=== PATIENT | male | born 1980 ===

== ENCOUNTER 2017-09-12 08:49 | Day surgery (SDC) | payer OTHER ==
[2017-09-12 09:18] VITALS: BMI 27.1
[2017-09-12] MEDS ORDERED: Lactated Ringer's 1,000 ML IV ONE ×2 (09:28→11:50)
[2017-09-12] MEDS ORDERED: Propofol 10 mg/ml Inj (20 ML) ONE (10:54)
[2017-09-12] MEDS ORDERED: Midazolam 2 MG/2 ML VIAL ONE (10:54)
[2017-09-12] MEDS ORDERED: Lidocaine Hydrochloride 0 ML INJ ONE (11:19)
[2017-09-12] MEDS ORDERED: ceFAZolin IV 1 gm in Dextrose 1 GM/50 ML BAG IVPB ONE (11:20)
[2017-09-12] MEDS ORDERED: Lidocaine 1% Inj (20ml) ONE (11:20)
[2017-09-12] MEDS ORDERED: Lidocaine 2% w Epi 1:100,000 Inj IJ ONE (11:32)
[2017-09-12] MEDS ORDERED: Lidocaine 1% Inj (20ml) IJ ONE (11:40)
[2017-09-12] MEDS ORDERED: Lactated Ringer's 1,000 ML IV SCH (12:30)
[2017-09-12] MEDS: HYDROmorphone 0.5 mg/0.5 ml ISec IVP PRN ×2 (13:00→13:02)
--- NOTE | 2017-09-12 13:05 | PCM.SURG1 ---
Surgeon's Initial Post Op Note - Surgeon's Notes Surgeon: hema Clutch Mechanic: none Type of Anesthesia: IV Sedation Pre-Operative Diagnosis: Right wrist ganglion cyst Operative Findings: see dictation Post-Operative Diagnosis: same Operation Performed: volar ganglion cyst excision Specimen/Specimens Removed: cyst Estimated Blood Loss: EBL {In ML}: 0 Date of Surgery/Procedure: 09/12/17 Time of Surgery/Procedure: 11:00
--- NOTE | 2017-09-12 13:06 | CP.PCM.DIS ---
Provider - Provider Attending physician: Christian Kimball MD Primary care physician: Christian Kimball MD Time Spent in preparation of Discharge (in minutes): 5 Discharge Plan - Follow Up Plan Condition: GOOD Disposition: HOME/ ROUTINE Referrals: Christian Kimball MD [Primary Care Provider] -
[2017-09-12 18:17] VITALS: BP 110/70; PULSE 60; RESP 18; TEMP 98; O2SAT 98
--- NOTE | 2017-09-18 16:11 | OP ---
PROCEDURE DATE: 09/12/2017 SURGEON: Christian Kimball MD MINK SLICER: None. PREOPERATIVE DIAGNOSIS: Right volar ganglion cyst. POSTOPERATIVE DIAGNOSIS: Right volar ganglion cyst. PROCEDURES: 1. Excision of right volar ganglion cyst, 62197. 2. Right wrist arthrotomy and synovectomy, 35281. TYPE OF ANESTHESIA: Regional and supplemental sedation. ESTIMATED BLOOD LOSS: None. COMPLICATIONS: None. DISPOSITION: Stable to recovery room. OPERATIVE FINDINGS: A volar ganglion cyst emanating from the radiocarpal joint. INDICATION: A 36-year-old male, who sustained an injury to his right wrist and developed traumatic volar ganglion cyst. The patient has failed conservative therapy, which included physical therapy, antiinflammatory medications, and splinting. He continued to have pain and limitation with the use of the hand. The above surgery was indicated. Risks and benefits of the surgery were explained, which included but not limited to bleeding; infection; tendon, nerve, or vessel injury; instability; chronic pain; potential need for additional surgery in the future. The patient understood the above risks and elected to proceed. DESCRIPTION OF PROCEDURE: The patient was taken to the operating room and placed supine on the operating room table. After adequate regional anesthesia and prophylactic antibiotics were given, well-padded non-sterile tourniquet was placed on the patient's right upper extremity. The entire extremity was then prepped and draped in a standard surgical fashion. Proposed incision was marked out with a sterile marking pen. This was a longitudinal incision over the volar and radial aspect of the wrist. The incision began at the level of the soft tissue mass and extending distally in to the level of the wrist flexion crease. An Esmarch bandage was used to exsanguinate the limb and the tourniquet was inflated to 250 mmHg. The Esmarch bandage was then removed. An incision was made in the skin only. All superficial veins were cauterized. Immediately, attention was turned down to the volar mass. Therefore, the ganglion cyst was dissected free being careful to isolate and protect the radial artery and its associated veins throughout the procedure. Again, the cyst was then dissected distally. The stalk was dissected distally to the radiocarpal joint. It was excised including the stalk and sent off the field as a specimen. A longitudinal incision was then made inline with the volar radiocarpal ligaments at the origin of the cyst now performing a wrist arthrotomy. The joint was inspected and local synovectomy was performed with rongeur, curette, and irrigation. The joint was irrigated with copious amounts of normal saline. The capsule was cauterized with bipolar cautery. The important volar ligaments were then repaired. The tourniquet was then deflated. Hemostasis was obtained using bipolar cautery. The skin was closed with 4-0 nylon interrupted sutures. Sterile dressing consisting of fluffs, 4x4, and a wrist splint was placed. The patient tolerated the procedure well and was brought to the recovery room, awake, alert, and in excellent condition. Christian Kimball MD
== END 2017-09-12 18:10 | disposition home or self-care (01) ==
LOC: H.OPSURG 08:49
PROVIDERS: ATTEND Orthopaedic Surgery
DX: M67.431 Ganglion, right wrist (principal); M25.831 Other specified joint disorders, right wrist
CPT/HCPCS: 25105; 25111; 88304; J0690; J1170; J2001; J2250; J2405; J2704; J3010; J7030; J7120